=== PATIENT | male | born 1940 | race Caucasian/White ===

== ENCOUNTER 2018-12-06 07:22 | Day surgery (SDC) | payer MEDICARE, BC ==
[2018-12-01 15:16] LABS: CLARITY,URINE CLEAR (Clear); COLOR,URINE YELLOW (Yellow); GLUCOSE, URINE NEGATIVE (Neg); KETONES,URINE NEGATIVE (Neg); LEUKOCYTE ESTERASE ,URINE NEGATIVE (Neg); NITRITES, URINE NEGATIVE (Neg); OCCULT BLOOD,URINE NEGATIVE (Neg); PROTEIN,URINE TRACE mg/dl (Neg); UROBILINOGEN,URINE 0.2 E.U/dL (0.2-1.0)
[2018-12-01 15:19] LABS: UA COLLECTION TYPE CLN CATCH MIDSTREAM
[2018-12-01 15:23] LABS: BASOPHILS % (AUTO) 0.5 % (0-1); EOSINOPHILS % (AUTO) 0.3 % (0-6); LYMPHOCYTES % (AUTO) 15.5 % (21-51); MEAN CORPUSCULAR HEMOGLOBIN 30.2 PG (27.0-31.0); MEAN CORPUSCULAR HGB CONC 32.9 g/dL (33.0-36.5); MEAN CORPUSCULAR VOLUME 91.7 FL (78-98); MEAN PLATELET VOLUME 9.6 FL (7.4-10.4); MONOCYTES # (AUTO) 0.5 X10'3 (0-0.9); MONOCYTES % (AUTO) 7.2 % (2-12); NEUTROPHILS # (AUTO) 4.9 X10'3 (1.8-7.7); NEUTROPHILS % (AUTO) 76.5 % (42-75); PRE OP HEMATOCRIT 44.1 % (42.0-52.0); PRE OP HEMOGLOBIN 14.5 g/dL (14.0-17.9); PRE OP PLATELET COUNT 177 X10'3 (140-440); RED BLOOD COUNT 4.81 X10'6 (4.70-6.10); RED CELL DISTRIBUTION WIDTH 14.5 % (11.5-14.5)
[2018-12-01 15:27] LABS: BACTERIA,URINE FEW /HPF (Neg); HYALINE CASTS 0-3 /LPF (NEGATIVE); MUCUS STRANDS MODERATE /LPF (Neg); RBC,URINE 0-2 /HPF (0-2); SQUAMOUS EPITHELIAL CELL,UR FEW /LPF (FEW); WBC,URINE 0-4 /HPF (0-4)
[2018-12-01 15:28] LABS: ALBUMIN 3.5 G/DL (3.4-5.0); ALBUMIN/GLOBULIN RATIO 1.1 (1.1-1.5); ALKALINE PHOSPHATASE 68 IU/L (46-116); BLOOD UREA NITROGEN 16 MG/DL (7-18); BUN/CREATININE RATIO 14.8 (5.4-32.0); CALCIUM 9.3 MG/DL (8.5-10.1); CHLORIDE 106 MMOL/L (99-107); CREATININE 1.08 MG/DL (0.60-1.10); PRE OP ALT 23 U/L (30-65); PRE OP ANION GAP 8 (8-16); PRE OP AST 21 U/L (10-37); PRE OP BILIRUB, TOTAL 0.4 MG/DL (0.0-1.0); PRE OP GLUCOSE 182 MG/DL (70-104); PRE OP POTASSIUM 3.4 MMOL/L (3.4-5.1); PRE OP SODIUM 143 MMOL/L (135-145); TOTAL CARBON DIOXIDE 29.4 MMOL/L (24-32); TOTAL PROTEIN 6.6 G/DL (6.4-8.2); eGFR 66 ML/MIN
[~2018-12-06] VITALS: Ht 182.9 cm; Wt 87.5 kg
[2018-12-06] VITALS (13 sets, daily range): BP systolic 139–188; BP diastolic 63–98
[~2018-12-06 07:22] MED LIST: AMLO2.5T2 PO; ASCO500C15 PO; ASPI-611 PO; BENA40TA72 PO; CYCL5.5D OP; DOCU-22 PO; ESOM40CA30 PO; EZET10TA14 PO; FENO135C PO; HYDR12.5 PO; LINA290C PO; METF500T PO; VITA400C19 PO; cefazolin/dext.iso 2gm/50ml 50 ML IV ONE; famotidine 20mg tablet PO ONE; ringers solution, lacted 1,000 ML IV SCH
[2018-12-06] MEDS ORDERED: ringers solution, lacted 1,000 ML IV SCH (09:08)
[2018-12-06] MEDS ORDERED: proCHLORperazine 10 MG/2 ml inj IV PRN (09:10)
[2018-12-06] MEDS ORDERED: morphine 4 MG/ML inj SYRINge IV PRN ×2 (09:10)
[2018-12-06] MEDS ORDERED: ondansetron/PF 4mg/2ml inj IV PRN (09:10)
[2018-12-06] MEDS ORDERED: meperidine/PF 25mg/ml syringe IV PRN ×3 (09:10)
[2018-12-06] MEDS ORDERED: desflurane 240ml liquid inh. IH ONE (10:20)
[2018-12-06] MEDS ORDERED: ketorolac trometh. 30mg/ml inj. ONE (10:20)
[2018-12-06] MEDS ORDERED: dexamethasone sod phosphate 10mg/ml inj ONE (10:20)
[2018-12-06] MEDS ORDERED: ondansetron/PF 4mg/2ml inj ONE (10:20)
[2018-12-06] MEDS ORDERED: propofol inj 20 ML IV ONE (10:27)
[2018-12-06] MEDS ORDERED: fentaNYL/PF 50MCG/1 ML 2ML syringe ONE (10:27)
[2018-12-06] MEDS ORDERED: rocuronium 10mg/ml inj IV ONE (10:27)
[2018-12-06] MEDS ORDERED: midazolam 2 mg/2 ml injection ONE (10:27)
[2018-12-06] MEDS ORDERED: LIDOcaine 1%/PF 5ML 10 MG/ML VIAL ONE (10:27)
[2018-12-06] MEDS ORDERED: glycopyrrolate 0.2mg/ml inj ONE (11:17)
[2018-12-06] MEDS ORDERED: neostigmine methylsulfate 1 MG/ML 10ml vial ONE (11:17)
--- NOTE | 2018-12-06 11:18 | NUR ---
Received from OR via , accompanied by Anesthesiologist Dr. Rose and report given by Anesthesiolgist. PATIENT A&O X4, VSS CHARTED, LING SOUNDS CLEAR. 100% 02 SAT ON 10L MASK, IVF INFUSING ORDERED, ABD SOFT TO TOUCH, lAP DRESSING X2M CDI. WILL CONTINUE TO MONITOR.
[2018-12-06] MEDS ORDERED: enalaprilat dihydrate 2.5mg/2ml vial IV PRN (11:55)
--- NOTE | 2018-12-06 11:59 | NUR ---
PATIENT BP ELEVATED CHRATED, DR. REIS MADE AWARE, VASOTEC GIVEN ORDERED. WILL CONTINUE TO MONITOR.
--- NOTE | 2018-12-06 13:00 | NUR ---
HOME MEDICATION DELIVERED BY YULIANA BENÍTEZ.
--- NOTE | 2018-12-06 13:08 | NUR ---
ALL DC CRITERIA HAS BEEN MET. IV TAKEN OUT WITHOUT COMPLICATIONS. ALL INSTRUCTIONS COVERED AND ALL QUESTIONS ANSWERED. DRESSINGS CDI. OUT VIA WHEELCHAIR TO PERSONAL VEHICLE WHERE PATIENT WAS SECURED IN AND DRIVEN HOME BY FAMILY.
== END 2018-12-06 13:11 | disposition home or self-care (01) ==
LOC: PAS 07:22
PROVIDERS: ATTEND Surgery
DX: K80.10 Calculus of gallbladder with chronic cholecystitis without obstruction (principal); K82.8 Other specified diseases of gallbladder; K40.90 Unilateral inguinal hernia, without obstruction or gangrene, not specified as recurrent; I10 Essential (primary) hypertension; E11.9 Type 2 diabetes mellitus without complications; Z88.8 Allergy status to other drugs, medicaments and biological substances; Z98.890 Other specified postprocedural states; Z79.899 Other long term (current) drug therapy; Z87.891 Personal history of nicotine dependence; I45.10 Unspecified right bundle-branch block; I25.10 Atherosclerotic heart disease of native coronary artery without angina pectoris; I25.2 Old myocardial infarction
CPT/HCPCS: 36415; 47562; 80053; 81001; 82948; 85025; 93005; J0690; J1100; J1885; J2001; J2250; J2405; J2704; J2710; J3010; J7120; 88304; A6251; A7000; J3490

== ENCOUNTER 2019-03-07 09:51 | Day surgery (SDC) | payer MEDICARE, BC ==
[2019-02-28 14:44] LABS: CLARITY,URINE CLEAR (Clear); COLOR,URINE STRAW (Yellow); GLUCOSE, URINE NEGATIVE (Neg); KETONES,URINE NEGATIVE (Neg); LEUKOCYTE ESTERASE ,URINE NEGATIVE (Neg); NITRITES, URINE NEGATIVE (Neg); OCCULT BLOOD,URINE NEGATIVE (Neg); PROTEIN,URINE NEGATIVE (Neg); UROBILINOGEN,URINE 0.2 E.U/dL (0.2-1.0)
[2019-02-28 14:53] LABS: UA COLLECTION TYPE CLN CATCH MIDSTREAM
[2019-02-28 15:02] LABS: BASOPHILS % (AUTO) 0.5 % (0-1); EOSINOPHILS % (AUTO) 0.5 % (0-6); LYMPHOCYTES # (AUTO) 0.9 X10'3 (1.1-4.8); LYMPHOCYTES % (AUTO) 20.6 % (21-51); MEAN CORPUSCULAR HEMOGLOBIN 31.1 PG (27.0-31.0); MEAN CORPUSCULAR HGB CONC 33.9 g/dL (33.0-36.5); MEAN CORPUSCULAR VOLUME 91.8 FL (78-98); MEAN PLATELET VOLUME 10.1 FL (7.4-10.4); MONOCYTES # (AUTO) 0.3 X10'3 (0-0.9); MONOCYTES % (AUTO) 7.1 % (2-12); NEUTROPHILS # (AUTO) 3.2 X10'3 (1.8-7.7); NEUTROPHILS % (AUTO) 71.3 % (42-75); PRE OP HEMATOCRIT 41.2 % (42.0-52.0); PRE OP PLATELET COUNT 160 X10'3 (140-440); RED BLOOD COUNT 4.49 X10'6 (4.70-6.10); RED CELL DISTRIBUTION WIDTH 14.4 % (11.5-14.5)
[2019-02-28 15:21] LABS: ALBUMIN 3.5 G/DL (3.4-5.0); ALBUMIN/GLOBULIN RATIO 1.2 (1.1-1.5); ALKALINE PHOSPHATASE 51 IU/L (46-116); BLOOD UREA NITROGEN 17 MG/DL (7-18); BUN/CREATININE RATIO 17.3 (5.4-32.0); CALCIUM 9.2 MG/DL (8.5-10.1); CHLORIDE 105 MMOL/L (99-107); CREATININE 0.98 MG/DL (0.60-1.10); PRE OP ALT 35 U/L (30-65); PRE OP ANION GAP 7 (8-16); PRE OP AST 28 U/L (10-37); PRE OP BILIRUB, TOTAL 0.3 MG/DL (0.0-1.0); PRE OP GLUCOSE 126 MG/DL (70-104); PRE OP POTASSIUM 3.8 MMOL/L (3.4-5.1); PRE OP SODIUM 141 MMOL/L (135-145); TOTAL CARBON DIOXIDE 28.6 MMOL/L (24-32); TOTAL PROTEIN 6.5 G/DL (6.4-8.2); eGFR 74 ML/MIN
[~2019-03-07] VITALS: Ht 182.9 cm; Wt 82.7 kg
[2019-03-07] VITALS (10 sets, daily range): BP systolic 128–157; BP diastolic 62–77
[~2019-03-07 09:51] MED LIST changes: +CHOL400T14 PO; -ESOM40CA30 PO; +ESZO3TAB66 PO; -METF500T PO; +PIOG30TA10 PO; +POLY17PO10 PO; +VITA1TAB20 PO; -cefazolin/dext.iso 2gm/50ml 50 ML IV ONE; -famotidine 20mg tablet PO ONE; -ringers solution, lacted 1,000 ML IV SCH
[2019-03-07] MEDS ORDERED: ceFAZolin 2gm in dextrose, iso 100 ML IV ONE (10:00)
[2019-03-07] MEDS ORDERED: ringers solution, lacted 1,000 ML IV SCH ×2 (10:00→10:49)
[2019-03-07] MEDS ORDERED: famotidine 20mg tablet PO ONE (10:00)
[2019-03-07] MEDS ORDERED: proCHLORperazine 10 MG/2 ml inj IV PRN (10:50)
[2019-03-07] MEDS ORDERED: meperidine/PF 25mg/ml syringe IV PRN ×3 (10:50)
[2019-03-07] MEDS ORDERED: morphine 4 MG/ML inj SYRINge IV PRN ×2 (10:50)
[2019-03-07] MEDS ORDERED: ondansetron/PF 4mg/2ml inj IV PRN (10:50)
[2019-03-07] MEDS ORDERED: BUPIVAcaine/PF 2.5mg/ml (0.25%) 10ml vial ONE ×2 (11:48→12:47)
[2019-03-07] MEDS ORDERED: ceFAZolin 1000mg inj ONE (11:48)
[2019-03-07] MEDS ORDERED: sevoflurane 250ml liquid IH ONE (12:01)
[2019-03-07] MEDS ORDERED: midazolam 2 mg/2 ml injection ONE (12:03)
[2019-03-07] MEDS ORDERED: fentaNYL/PF 50MCG/1 ML 2ML syringe ONE (12:03)
[2019-03-07] MEDS ORDERED: ePHEDrine 50MG/ML INJ. ONE (12:27)
[2019-03-07] MEDS ORDERED: propofol inj 20 ML IV ONE (12:27)
--- NOTE | 2019-03-07 13:10 | NUR ---
Received from OR via [facility], accompanied by Anesthesiologist DR. SEALS and report given by Anesthesiolgist. PT ARRIVED WITH O2 VIA MASK AT 10L. RESPONDS TO VERBAL STIMULI. ELDER WITH GOOD CSM. PULSES AND MOTORCOACH DRIVER WNL. DRESSING TO LOW RT ABD CDI
== END 2019-03-07 14:40 | disposition home or self-care (01) ==
LOC: PAS 09:51
PROVIDERS: ATTEND Surgery
DX: K40.90 Unilateral inguinal hernia, without obstruction or gangrene, not specified as recurrent (principal); I73.9 Peripheral vascular disease, unspecified; I10 Essential (primary) hypertension; E11.9 Type 2 diabetes mellitus without complications; Z98.890 Other specified postprocedural states; Z87.891 Personal history of nicotine dependence; Z86.718 Personal history of other venous thrombosis and embolism; Z90.49 Acquired absence of other specified parts of digestive tract
CPT/HCPCS: 36415; 49505; 80053; 81003; 82948; 85025; C1781; J0690; J2175; J2250; J2270; J2704; J3010; J3490; J7120; A6449; A7000

== ENCOUNTER 2021-09-16 10:03 | Day surgery (SDC) | payer MEDICARE, BC ==
[~2021-09-16] VITALS: Ht 170.2 cm; Wt 92.1 kg
[2021-09-16] VITALS (10 sets, daily range): BP systolic 126–179; BP diastolic 63–84
[~2021-09-16 10:03] MED LIST changes: -ASCO500C15 PO; +ASCO500C18 PO; -EZET10TA14 PO; +EZET10TA6 PO; +VITA-336 PO; -VITA400C19 PO
[2021-09-16] MEDS ORDERED: normal saline 1,000 ML IV SCH (10:30)
[2021-09-16] MEDS ORDERED: LORazepam 0.5 MG tablet PO PRN (10:30)
[2021-09-16] MEDS ORDERED: diphenhydrAMINE 25mg capsule PO PRN (10:30)
[2021-09-16] MEDS ORDERED: PRAV20TA4 PO (10:54)
[2021-09-16] MEDS ORDERED: CYCL1DRO2 EACHEYE (10:54)
[2021-09-16] MEDS ORDERED: LIDOcaine/PRILOcaine 5gm cream TP ONE (11:00)
[2021-09-16] MEDS ORDERED: midazolam 1 mg/ML 2ml injection ONE (11:36)
[2021-09-16] MEDS ORDERED: LIDOcaine 1% (10mg/ml)w/preservative injection 20ml MDV ONE (11:36)
[2021-09-16] MEDS ORDERED: iohexol 350MG/ML 100ml bottle IV ONE ×2 (11:36→13:16)
[2021-09-16] MEDS ORDERED: fentaNYL/PF 50MCG/1 ML 2ML syringe ONE (11:36)
[2021-09-16] MEDS ORDERED: verapamil 2.5 mg/ml inj IV ONE (11:56)
[2021-09-16] MEDS ORDERED: nitroGLYCERIN-Tridil 50MG/D5W 250 ML IV ONE (11:56)
[2021-09-16] MEDS ORDERED: heparin 1,000unit/ml 10ml vial 10 ML ONE (11:56)
--- NOTE | 2021-09-16 12:15 | NUR ---
pt left to rn cardiac cath.
[2021-09-16] MEDS ORDERED: clopidogrel 300mg tablet ONE (13:57)
[2021-09-16] MEDS ORDERED: proCHLORperazine 10 MG/2 ml inj IV PRN (14:25)
[2021-09-16] MEDS ORDERED: ondansetron/PF 4mg/2ml inj IV PRN (14:25)
[2021-09-16] MEDS ORDERED: HYDROcodone/acetaminophen 10/325mg tab PO PRN (14:25)
[2021-09-16] MEDS ORDERED: HYDROcodone/acetaminophen 5mg/325mg tablet PO PRN (14:25)
[2021-09-16] MEDS ORDERED: OXAZEpam 15mg capsule PO PRN (14:25)
[2021-09-16] MEDS ORDERED: nitroGLYCERIN 0.4mg SUBLingual tab SL PRN (14:25)
[2021-09-16] MEDS ORDERED: acetaminophen 325mg tablet PO PRN (14:25)
--- NOTE | 2021-09-16 15:32 | NUR ---
Called to elizabeth Pang to DC at 1700 and ok to start releasing vascband now.
--- NOTE | 2021-09-16 16:04 | NUR ---
Called to pt friend Alejandro [phone] for ride home. stated will be here at 1700 and will call short stay to let us know he is here. pt notified of planned DC time. verbalized understanding.
--- NOTE | 2021-09-16 17:09 | NUR ---
pt dc instructions explained to pt. verbalized understanding. IV removed with canula intact. pressure help until stasis achieved. right wrist shows no signs of hematoma. no distress noted. pt verbalized understanding to f/u with dr muro tomorrow and the need to f/u with Kofi roy md.
== END 2021-09-16 17:00 | disposition home or self-care (01) ==
LOC: SSTAY O 10:03
PROVIDERS: ATTEND Internal Medicine Interventional Cardiology
DX: R94.39 Abnormal result of other cardiovascular function study (principal); R07.89 Other chest pain; I25.10 Atherosclerotic heart disease of native coronary artery without angina pectoris; E11.9 Type 2 diabetes mellitus without complications; I10 Essential (primary) hypertension; E78.5 Hyperlipidemia, unspecified; Z95.0 Presence of cardiac pacemaker; Z79.899 Other long term (current) drug therapy; Z79.82 Long term (current) use of aspirin; Z88.8 Allergy status to other drugs, medicaments and biological substances; Z88.1 Allergy status to other antibiotic agents; Z87.891 Personal history of nicotine dependence
CPT/HCPCS: 92920; 93005; 93458; 99152; 99153; C1725; C1751; C1769; C1894; J1644; J2250; J3010; J3490; J7030; Q0163; Q9967; A4620; A5120